=== PATIENT | female | born 1985 | race Caucasian/White ===

== ENCOUNTER 2018-01-03 14:45 | Emergency (ER) | payer OTHER ==
[2018-01-03 15:31] VITALS: BMI 26.5
[2018-01-03 15:33] VITALS: RESP 16
[2018-01-03 16:05] LABS: BASO # 0.1 K/uL (0.0-0.2); BASO % 0.8 % (0.0-2.0); EOS # 0.2 K/uL (0.0-0.7); EOS % 2.2 % (0.0-4.0); HEMOGLOBIN 12.8 g/dL (11.0-16.0); LYMPH # 2.9 K/uL (1.0-4.3); MEAN CELL VOLUME 78.2 fL (81.0-99.0); MEAN CORPUSCULAR HEMOGLOBIN 25.6 pg (27.0-31.0); MEAN CORPUSCULAR HGB CONC 32.7 g/dL (33.0-37.0); MEAN PLATELET VOLUME 9.3 fL (7.2-11.7); MONO # 0.6 K/uL (0.0-0.8); MONO % 6.5 % (0.0-10.0); NEUT # 4.8 K/uL (1.8-7.0); NEUT % 56.5 % (50.0-75.0); NRBC % 0.1 % (0.0-2.0); RED CELL DISTRIBUTION WIDTH 13.4 % (11.5-14.5); WHITE BLOOD COUNT 8.5 K/uL (4.8-10.8)
[2018-01-03 16:16] LABS: HCG,QUALITATIVE URINE NEGATIVE (NEGATIVE)
[2018-01-03 16:17] LABS: ALB/GLOB RATIO 1.3 (1.0-2.1); ALBUMIN 4.4 g/dL (3.5-5.0); ALT/SGPT 63 U/L (9-52); AST/SGOT 37 U/L (14-36); BLOOD UREA NITROGEN 12 mg/dL (7-17); CALCIUM 9.1 mg/dl (8.6-10.4); GFR NON-AFRICAN AMERICAN > 60
[2018-01-03 16:18] LABS: SQUAMOUS EPITHIAL 2 /hpf (0-5); URINE BILIRUBIN NEGATIVE (NEGATIVE); URINE BLOOD NEGATIVE (NEGATIVE); URINE CLARITY Clear (Clear); URINE COLOR Yellow (YELLOW); URINE GLUCOSE (UA) NORMAL (Normal); URINE LEUKOCYTE ESTERASE NEG Leu/uL (Negative); URINE PROTEIN NEGATIVE (NEGATIVE); URINE UROBILINOGEN NORMAL mg/dL (0.2-1.0)
--- NOTE | 2018-01-03 17:13 | C.PDOC ---
History Of Present Illness 32-year-old female presents to the ED for evaluation, stating she has not been feeling well for the past two years. Patient states she feels tired often. She feels like her "muscles are tired," and is unable to perform activities like washing the dishes because she gets fatigued easily. Patient has not been able to follow up with a doctor because she does not have insurance coverage. Patient denies fever, chills, recent trauma/injury. Chief Complaint (Nursing): Back Pain History Per: Patient History/Exam Limitations: no limitations Onset/Duration Of Symptoms: Days Current Symptoms Are (Timing): Still Present Quality Of Discomfort: "Pain" Additional History Per: Patient Past Medical History Reviewed: Historical Data, Nursing Documentation, Vital Signs Vital Signs: Last Vital Signs Temp 98.2 F 01/03/18 17:28 Pulse 74 01/03/18 17:28 Resp 16 01/03/18 17:28 BP 123/85 01/03/18 17:28 Pulse Ox 100 01/03/18 22:19 - Medical History PMH: Kidney Stones, Chronic Kidney Disease Surgical History: No Surg Hx Family History: States: Unknown Family Hx - Social History Hx Alcohol Use: No Hx Substance Use: No - Immunization History Hx Tetanus Toxoid Vaccination: No Hx Influenza Vaccination: No Hx Pneumococcal Vaccination: No Review Of Systems Constitutional: Positive for: Other (fatigue ). Negative for: Fever, Chills Physical Exam - Physical Exam Appears: Non-toxic, No Acute Distress Skin: Normal Color, Warm, Dry Head: Atraumatic, Normacephalic Eye(s): bilateral: Normal Inspection Oral Mucosa: Moist Neck: Supple Chest: Symmetrical, No Deformity, No Tenderness Cardiovascular: Rhythm Regular, No Murmur Respiratory: Normal Breath Sounds, No Rales, No Rhonchi, No Wheezing Gastrointestinal/Abdominal: Soft, No Tenderness, No Guarding, No Rebound Extremity: Normal ROM, Capillary Refill (less than 2 seconds ) Neurological/Psych: Oriented x3, Normal Speech, Normal Cognition ED Course And Treatment - Laboratory Results Result Diagrams: 01/03/18 15:57 01/03/18 15:57 O2 Sat by Pulse Oximetry: 100 (on RA) Pulse Ox Interpretation: Normal Progress Note: Bloodwork and urinalysis ordered and reviewed. Patient has unremarkable CRP, ESR, and TSH. On re-examination, patient is resting comfortably, showing no signs of distress and is stable for discharge. Patient is advised to follow up with clinic with 1-2 days for further evaluation. Disposition - Disposition Referrals: [facility] [Outside] Disposition: HOME/ ROUTINE Disposition Time: 17:11 Condition: STABLE Additional Instructions: Follow up in Clinic within 1-2 days. Return to ED if feel worse. Prescriptions: Naproxen [Naprosyn] 1 tab PO BID PRN #25 tab PRN Reason: Pain Famotidine [Pepcid] 20 mg PO BID #20 tab Instructions: Muscle and Bone Pain (DC) Forms: [employer] (Frisian) - Clinical Impression Clinical Impression: Muscle pain - PA / [employer] / Resident Statement MD/DO has reviewed & agrees with the documentation as recorded. - Scribe Statement The provider has reviewed the documentation as recorded by the Scribe (Becca Tirado) All medical record entries made by the Scribe were at my direction and personally dictated by me. I have reviewed the chart and agree that the record accurately reflects my personal performance of the history, physical exam, medical decision making, and the department course for this patient. I have also personally directed, reviewed, and agree with the discharge instructions and disposition.
[2018-01-03 17:28] VITALS: BP 123/85; PULSE 74; TEMP 98.2
[2018-01-03 21:57] VITALS: O2SAT 100
== END 2018-01-03 17:31 | disposition home or self-care (01) ==
LOC: C.ER 14:45
DX: M79.1 Myalgia (principal)

== ENCOUNTER 2018-06-23 09:24 | Emergency (ER) | payer OTHER ==
[2018-06-23 09:24] VITALS: BMI 26.5
[2018-06-23 09:51] VITALS: BP 133/82; PULSE 104; RESP 18; TEMP 98.7; O2SAT 99
--- NOTE | 2018-06-23 15:11 | C.PDOC ---
History Of Present Illness 32 year old female comes in to ED complaining of flu-like symptoms, fever, and sore throat x2 days. Patient denies cough, recent travel, or sick contact. Patient is able to tolerate PO. Chief Complaint (Nursing): Flu-like Symptoms History Per: Patient History/Exam Limitations: no limitations Onset/Duration Of Symptoms: Days Current Symptoms Are (Timing): Still Present Associated Symptoms: Fever, Sore Throat. denies: Cough Past Medical History Reviewed: Historical Data, Nursing Documentation, Vital Signs Vital Signs: Last Vital Signs Temp 98.7 F 06/23/18 09:47 Pulse 104 H 06/23/18 09:47 Resp 18 06/23/18 09:47 BP 133/82 06/23/18 09:47 Pulse Ox 99 06/23/18 09:47 - Medical History PMH: Kidney Stones, Chronic Kidney Disease Family History: States: No Known Family Hx - Social History Hx Alcohol Use: No Hx Substance Use: No - Immunization History Hx Tetanus Toxoid Vaccination: No Hx Influenza Vaccination: No Hx Pneumococcal Vaccination: No Review Of Systems Except As Marked, All Systems Reviewed And Found Negative. Constitutional: Positive for: Fever. Negative for: Chills ENT: Positive for: Throat Pain (Sore Throat) Respiratory: Negative for: Cough, Shortness of Breath Gastrointestinal: Negative for: Vomiting, Diarrhea Physical Exam - Physical Exam Appears: Non-toxic, No Acute Distress Skin: Warm, Dry Head: Atraumatic, Normacephalic Eye(s): bilateral: Normal Inspection Ear(s): Bilateral: Normal Oral Mucosa: Moist Throat: Erythema, Exudate (bilateral tonsils) Lymphatic: Other (Cervical adenopathy) Cardiovascular: Rhythm Regular, No Murmur Respiratory: Normal Breath Sounds, No Rales, No Rhonchi, No Wheezing Gastrointestinal/Abdominal: Soft, No Tenderness Extremity: Bilateral: Atraumatic, Normal Color And Temperature, Normal ROM Neurological/Psych: Oriented x3, Normal Speech ED Course And Treatment O2 Sat by Pulse Oximetry: 99 (RA) Pulse Ox Interpretation: Normal Disposition - Disposition Referrals: [facility] [Outside] [facility] [Outside] Disposition: HOME/ ROUTINE Disposition Time: 10:20 Condition: GOOD Additional Instructions: CYNDEE YOON, thank you for letting us take care of you today. The emergency medical care you received today was directed at your acute symptoms. If you were prescribed any medication, please fill it and take as directed. It may take s everal days for your symptoms to resolve. Return to the Emergency Department if your symptoms worsen, do not improve, or if you have any other problems. Please contact your doctor or call one of the physicians/clinics you have been referred to that are listed on the Patient Visit Information form that is included in your discharge packet. Bring any paperwork you were given at discharge with you along with any medications you are taking to your follow up visit. Our treatment cannot replace ongoing medical care by a primary care provider outside of the emergency department. Thank you for allowing the [facility] team to be part of your care today. Follow up with our clinic this week for re-evaluation and further management. Prescriptions: Amoxicillin 875 mg PO BID #14 tablet Ibuprofen [Motrin] 600 mg PO Q6 PRN #20 tab PRN Reason: Pain, Moderate (4-7) Oseltamivir Phosphate [Tamiflu] 75 mg PO BID #10 capsule Instructions: Sore Throat, Adult (DC), Viral Syndrome (DC) Forms: [employer] ([employer]) - Clinical Impression Clinical Impression: Influenza-like illness, Pharyngitis - Scribe Statement The provider has reviewed the documentation as recorded by the Mark Anthony Farnsworth Provider Attestation: All medical record entries made by the Mark Anthony were at my direction and personally dictated by me. I have reviewed the chart and agree that the record accurately reflects my personal performance of the history, physical exam, medical decision making, and the department course for this patient. I have also personally directed, reviewed, and agree with the discharge instructions and disposition.
== END 2018-06-23 10:43 | disposition home or self-care (01) ==
LOC: C.ER 09:24
DX: J11.1 Influenza due to unidentified influenza virus with other respiratory manifestations (principal)